=== PATIENT | male | born 1965 | race Caucasian/White ===

== ENCOUNTER 2020-10-30 11:03 | Emergency (ER) | payer OTHER ==
[2020-10-30 11:33] LABS: HEMOGLOBIN 13.4 gm/dl (14.0-17.5); RED BLOOD COUNT 5.14 M/UL (4.20-5.50)
[2020-10-30 12:15] LABS: BUN/CREATININE RATIO 16 (0-10)
[2020-10-30] MEDS ORDERED: CLONIDINE HCL0.1 MG PO (17:46)
== END 2020-10-30 18:05 | disposition home or self-care (01) ==
LOC: ER1 11:03
PROVIDERS: Emergency Medicine
DX: R07.9 Chest pain, unspecified (principal); I10 Essential (primary) hypertension; R44.3 Hallucinations, unspecified; F17.200 Nicotine dependence, unspecified, uncomplicated; Z86.73 Personal history of transient ischemic attack (TIA), and cerebral infarction without residual deficits; Z88.8 Allergy status to other drugs, medicaments and biological substances; Z79.899 Other long term (current) drug therapy; Z20.822 Contact with and (suspected) exposure to COVID-19
CPT/HCPCS: 70450; 71045; 80053; 80156; 82550; 82553; 83874; 84484; 85025; 93005; 99285; G0480; U0002